=== PATIENT | male | born 1950 | race Hispanic/Latino ===

== ENCOUNTER 2022-07-05 16:02 | Inpatient (IN) | payer OTHER ==
[~2022-07-05] VITALS: Ht 162.6 cm; Wt 85.2 kg
[~2022-07-05 16:02] MED LIST: ALLO300T2 PO; ATOR10 PO; DOXA8TAB81 PO; GABA-531 PO; INSU100V12 SQ; LIRA0.6P SQ; METO25 PO
[2022-07-05] MEDS ORDERED: ONDANSETRON 4MG INJ IVP ONE (16:30)
[2022-07-05] MEDS ORDERED: IOHEXOL-350 75 ML VIAL IV ONE (16:30)
[2022-07-05] MEDS ORDERED: 0.9%NACL 1000ML 1,000 ML IV ONE (16:30)
[2022-07-05 16:46] LABS: BASOPHILS % (AUTO) 0.1 % (0.0-5.0); EOSINOPHILS % (AUTO) 0.1 % (0.0-8.0); HEMATOCRIT 38.6 % (42-54); LYMPHOCYTES % (AUTO) 7.1 % (21.0-51.0); MEAN CORPUSCULAR HEMOGLOBIN 31.4 pg (27.0-33.0); MEAN CORPUSCULAR HGB CONC 34.2 g/dL (32.0-36.0); MEAN CORPUSCULAR VOLUME 91.7 fL (79-99); MONOCYTES % (AUTO) 2.5 % (3.0-13.0); NEUTROPHILS % (AUTO) 89.9 % (40.0-77.0); PLATELET COUNT (AUTO) 147 K/uL (130-400); RED BLOOD CELL COUNT(AUTO) 4.21 MIL/uL (4.50-6.20); RED CELL DISTRIBUTION WIDTH 13.4 % (11.0-15.5); WHITE BLOOD COUNT (AUTO) 7.7 K/uL (4.8-10.8)
[2022-07-05 17:01] LABS: CARBON DIOXIDE 27 mmol/L (21-32); CHLORIDE 101 mmol/L (101-111); CREATININE 0.9 mg/dL (0.5-1.5); GLOMERULAR FILTR. RATE CALC 90 mL/min (>90); GLUCOSE,RANDOM 137 mg/dL (70-105); POTASSIUM 3.4 mmol/L (3.5-5.1); SODIUM SERUM 140 mmol/L (136-145); UREA NITROGEN, BLOOD 20 mg/dL (7-18)
[2022-07-05 17:06] LABS: APPEARANCE,URINE CLEAR (CLEAR); BILIRUBIN,URINE NEGATIVE (NEGATIVE); COLOR,URINE YELLOW (YELLOW); GLUCOSE, URINE (UA) NEGATIVE (NEGATIVE); KETONES,URINE 60 mg/dL (NEGATIVE); LEUKOCYTE ESTERASE ,URINE NEGATIVE Leu/uL (NEGATIVE); NITRATE,URINE NEGATIVE (NEGATIVE); OCCULT BLOOD,URINE NEGATIVE (NEGATIVE); PROTEIN,URINE NEGATIVE (NEGATIVE)
[2022-07-05 17:06] LABS: ALANINE AMINOTRANSFERASE 19 U/L (12-78); ALBUMIN 4.4 g/dL (3.5-5.0); ASPARTATE AMINOTRANSFERASE 18 U/L (10-37); LIPASE 60 U/L (114-286); TOTAL PROTEIN, SERUM 7.9 g/dL (6.0-8.3)
[2022-07-05 17:11] LABS: CRP QUANTITATIVE < 2.00 mg/L (0.00-9.0)
[2022-07-05] MEDS ORDERED: ZOSYN 3.375GM +NS 50ML IVPB ONE (18:30)
[2022-07-05] MEDS: ZOSYN 3.375GM+NS 50ML 50 ML IVPB SCH (20:54)
[2022-07-05] MEDS: INSULIN HUMULIN R 100 UNIT/ML 3ML SQ SCH (20:59)
[2022-07-05] MEDS ORDERED: MAGNESIUM 2GM PREMIX 50ML 50 ML IV PRN (21:00)
[2022-07-05] MEDS ORDERED: LACTATED RINGERS 1000ML 1,914 ML IV ONE (21:00)
[2022-07-05] MEDS: HYDROMORPHONE 0.5 MG SYG (0.5MG/0.5ML) IV PRN (21:00)
[2022-07-05] MEDS ORDERED: ONDANSETRON 4MG INJ IV PRN (21:00)
[2022-07-05] MEDS ORDERED: ACETAMINOPHEN 325 MG TAB PO PRN (21:00)
[2022-07-05] MEDS ORDERED: POTASSIUM CHLORIDE 20MEQ/100ML 100 ML IV PRN (21:00)
[2022-07-05] MEDS: LACTATED RINGERS 1000ML 1,000 ML IV SCH (21:00)
[2022-07-05 23:00] VITALS: BP 159/74
[2022-07-06] VITALS (7 sets, daily range): BP systolic 125–155; BP diastolic 64–86
[2022-07-06] MEDS: ZOSYN 3.375GM+NS 50ML 50 ML IVPB SCH ×3 (05:00→21:00)
[2022-07-06 05:05] LABS: BASOPHILS % (AUTO) 0.1 % (0.0-5.0); EOSINOPHILS % (AUTO) 0.1 % (0.0-8.0); HEMATOCRIT 33.9 % (42-54); LYMPHOCYTES % (AUTO) 10.5 % (21.0-51.0); MEAN CORPUSCULAR HEMOGLOBIN 32.2 pg (27.0-33.0); MEAN CORPUSCULAR HGB CONC 35.1 g/dL (32.0-36.0); MEAN CORPUSCULAR VOLUME 91.6 fL (79-99); MONOCYTES % (AUTO) 5.2 % (3.0-13.0); NEUTROPHILS % (AUTO) 83.7 % (40.0-77.0); PLATELET COUNT (AUTO) 155 K/uL (130-400); RED CELL DISTRIBUTION WIDTH 13.5 % (11.0-15.5); WHITE BLOOD COUNT (AUTO) 7.1 K/uL (4.8-10.8)
[2022-07-06 05:26] LABS: CREATININE 0.9 mg/dL (0.5-1.5); MAGNESIUM 1.5 mg/dL (1.80-2.40); PHOSPHORUS 3.3 mg/dL (2.5-4.9); POTASSIUM 3.6 mmol/L (3.5-5.1)
[2022-07-06 05:27] LABS: INR 1.05 (0.85-1.15); PROTHROMBIN TIME 11.4 SEC (9.6-11.6)
[2022-07-06 05:28] LABS: PARTIAL THROMBOPLASTIN TIME 27.3 SEC (26.3-35.5)
[2022-07-06 05:34] LABS: HEMOGLOBIN A1C 5.9 % (4.0-6.0)
[2022-07-06] MEDS: HYDROMORPHONE 0.5 MG SYG (0.5MG/0.5ML) IV PRN (05:55)
[2022-07-06] MEDS: INSULIN HUMULIN R 100 UNIT/ML 3ML SQ SCH ×4 (07:30→19:35)
[2022-07-06] MEDS: ENOXAPARIN SODIUM 40 MG/0.4 ML SYRINGE SQ SCH (08:16)
[2022-07-06] MEDS ORDERED: FAMOTIDINE 20MG VIAL IV SCH (09:00)
[2022-07-06] MEDS ORDERED: BUPIVACAINE/PF 0.25% 30ML VIAL IJ ONE (10:20)
[2022-07-06] MEDS ORDERED: LIDOCAINE PF 100MG/5ML (2%) SYRINGE 5ML ONE (10:26)
[2022-07-06] MEDS ORDERED: ROCURONIUM 10MG/1ML SYR 10 MG/ML ML ONE (10:26)
[2022-07-06] MEDS ORDERED: PROPOFOL 10 MG/ML 20ML VIAL IV ONE (10:26)
[2022-07-06] MEDS ORDERED: SUCCINYLCHOLINE CHLORIDE 20 MG/ML 10 ML VIAL ONE (10:26)
[2022-07-06] MEDS ORDERED: ONDANSETRON 4MG INJ ONE (10:27)
[2022-07-06] MEDS ORDERED: FENTANYL CITRATE PF 50 MCG/1 ML 2ML VIAL ONE (10:28)
[2022-07-06] MEDS ORDERED: HYDROMORPHONE 0.5 MG SYG (0.5MG/0.5ML) IV PRN (13:00)
[2022-07-06] MEDS: DULOXETINE HCL 30 MG CAP PO SCH (20:12)
[2022-07-06] MEDS: FAMOTIDINE 20MG TAB PO SCH (20:12)
[2022-07-06] MEDS: PANTOPRAZOLE 40 MG TAB DR PO SCH (20:12)
[2022-07-06] MEDS: LACTATED RINGERS 1000ML 1,000 ML IV SCH (20:13)
[2022-07-06] MEDS: ACETAMINOPHEN 325 MG TAB PO PRN (23:07)
[2022-07-07] VITALS: BP 137/99
[2022-07-07 04:00] VITALS: BP 142/68
[2022-07-07] MEDS: ZOSYN 3.375GM+NS 50ML 50 ML IVPB SCH ×2 (04:55→12:22)
[2022-07-07] MEDS: ACETAMINOPHEN 325 MG TAB PO PRN (04:57)
[2022-07-07 05:37] LABS: BASOPHILS % (AUTO) 0.3 % (0.0-5.0); EOSINOPHILS % (AUTO) 0.9 % (0.0-8.0); HEMATOCRIT 32.4 % (42-54); LYMPHOCYTES % (AUTO) 13.9 % (21.0-51.0); MEAN CORPUSCULAR HEMOGLOBIN 31.9 pg (27.0-33.0); MEAN CORPUSCULAR HGB CONC 34.9 g/dL (32.0-36.0); MEAN CORPUSCULAR VOLUME 91.5 fL (79-99); MONOCYTES % (AUTO) 7.8 % (3.0-13.0); NEUTROPHILS % (AUTO) 76.7 % (40.0-77.0); PLATELET COUNT (AUTO) 136 K/uL (130-400); RED BLOOD CELL COUNT(AUTO) 3.54 MIL/uL (4.50-6.20); RED CELL DISTRIBUTION WIDTH 13.6 % (11.0-15.5); WHITE BLOOD COUNT (AUTO) 6.9 K/uL (4.8-10.8)
[2022-07-07 05:52] LABS: ALBUMIN 3.5 g/dL (3.5-5.0); POTASSIUM 3.4 mmol/L (3.5-5.1); TOTAL PROTEIN, SERUM 6.5 g/dL (6.0-8.3)
[2022-07-07] MEDS: INSULIN HUMULIN R 100 UNIT/ML 3ML SQ SCH ×3 (06:19→16:30)
[2022-07-07] MEDS ORDERED: KCL 20 MEQ ERTAB PO PRN ×2 (06:30→13:00)
[2022-07-07] MEDS ORDERED: POTASSIUM CHLORIDE 10% ELIXIR 20 MEQ/15 ML UDCUP PO PRN ×2 (06:30→13:00)
[2022-07-07] MEDS ORDERED: POTASSIUM CHLORIDE 20MEQ/100ML 100 ML IV PRN ×2 (06:30→13:00)
[2022-07-07 08:00] VITALS: BP 143/78
[2022-07-07] MEDS: FAMOTIDINE 20MG TAB PO SCH (10:08)
[2022-07-07] MEDS: DULOXETINE HCL 30 MG CAP PO SCH (10:08)
[2022-07-07] MEDS: PANTOPRAZOLE 40 MG TAB DR PO SCH (10:08)
[2022-07-07] MEDS: ENOXAPARIN SODIUM 40 MG/0.4 ML SYRINGE SQ SCH (10:08)
[2022-07-07 11:00] VITALS: BP 155/94
[2022-07-07] MEDS ORDERED: MAGNESIUM 2GM PREMIX 50ML 50 ML IV PRN (13:00)
[2022-07-07 13:53] LABS: AMMONIA 16 umol/L (11-32)
[2022-07-07 16:05] LABS: AMPHET/METH SCREEN,URINE NEGATIVE (NEGATIVE); BARBITURATE SCREEN, URINE NEGATIVE (NEGATIVE); BENZODIAZEPINES SCREEN,URINE NEGATIVE (NEGATIVE); CANNABINOID SCREEN,URINE NEGATIVE (NEGATIVE); COCAINE SCREEN,URINE NEGATIVE (NEGATIVE); OPIATE SCREEN,URINE NEGATIVE (NEGATIVE); PHENCYCLIDINE SCREEN,URINE NEGATIVE (NEGATIVE)
[2022-07-07] MEDS ORDERED: DICY10 PO (16:40)
[2022-07-07] MEDS ORDERED: FAMO20TA8 PO (16:40)
[2022-07-07] MEDS ORDERED: ONDA-104 PO (16:40)
== END 2022-07-07 19:33 | disposition home or self-care (01) | DRG 73 ==
LOC: EDH 16:02 → EDHIP 19:35 → 4BH 22:30
PROVIDERS: ADMIT Internal Medicine; ATTEND Internal Medicine
DX: E11.43 Type 2 diabetes mellitus with diabetic autonomic (poly)neuropathy (principal); G93.41 Metabolic encephalopathy; Z20.822 Contact with and (suspected) exposure to COVID-19; K21.9 Gastro-esophageal reflux disease without esophagitis; E78.5 Hyperlipidemia, unspecified; E87.6 Hypokalemia; F41.1 Generalized anxiety disorder; K29.70 Gastritis, unspecified, without bleeding; I10 Essential (primary) hypertension; K31.84 Gastroparesis; Z82.49 Family history of ischemic heart disease and other diseases of the circulatory system; Z79.4 Long term (current) use of insulin; Z83.3 Family history of diabetes mellitus; Z88.5 Allergy status to narcotic agent; Z87.891 Personal history of nicotine dependence
CPT/HCPCS: 36415; 70450; 71045; 74177; 78264; 80048; 80053; 80305; 81003; 82010; 82140; 82607; 82948; 83036; 83605; 83690; 83735; 84100; 84145; 84443; 84484; 85025; 85610; 85730; 86140; 86850; 86900; 86901; 87040; 87635; 93005; A9541; G0378; J0330; J1170; J1650; J2001; J2405; J2543; J2704; J3010; J3475; J3490; J7030; J7120; Q9967